=== PATIENT | female | born 1960 | race African-American/Black ===

== ENCOUNTER 2017-12-27 13:16 | Emergency (ER) | payer BC, MEDICAID ==
[~2017-12-27] VITALS: Ht 157.5 cm; Wt 100.0 kg
[2017-12-27] MEDS ORDERED: LISI10TA5 PO (14:03)
[2017-12-27 14:05] VITALS: BP 157/94
== END 2017-12-27 17:46 | disposition left against medical advice (07) ==
LOC: ER 13:37
DX: M54.2 Cervicalgia (principal); R42 Dizziness and giddiness; Z53.21 Procedure and treatment not carried out due to patient leaving prior to being seen by health care provider